=== PATIENT | male | born 1955 | race Caucasian/White ===

== ENCOUNTER 2017-08-02 15:03 | Emergency (ER) | payer BC ==
[2017-08-02] MEDS: KETOROLAC 60 MG INJ IM (16:57)
== END 2017-08-02 19:08 | disposition home or self-care (01) ==
LOC: FTE 15:03
DX: S16.1XXA Strain of muscle, fascia and tendon at neck level, initial encounter (principal); S09.90XA Unspecified injury of head, initial encounter; V49.40XA Driver injured in collision with unspecified motor vehicles in traffic accident, initial encounter
CPT/HCPCS: 70450; 72125; 96372; 99285-25

== ENCOUNTER 2019-01-25 15:16 | Emergency (ER) | payer BC ==
[2019-01-25] MEDS: METHYLPREDNISOLONE 125 MG INJ IM (16:28)
[2019-01-25] MEDS: KETOROLAC 30 MG INJ IM (16:29)
== END 2019-01-25 16:48 | disposition home or self-care (01) ==
LOC: FTE 15:16
DX: M76.61 Achilles tendinitis, right leg (principal)
CPT/HCPCS: 96372; 99284-25